=== PATIENT | male | born 1980 | race Caucasian/White ===

== ENCOUNTER 2024-05-01 13:20 | Day surgery (SDC) | payer MEDICARE, MEDICAID ==
[~2024-05-01] VITALS: Ht 172.7 cm; Wt 81.2 kg
[~2024-05-01 13:20] MED LIST: LR 1,000 ML IV SCH
[2024-05-01 14:24] VITALS: BP 123/77; PULSE 71; TEMP 98
[2024-05-01] MEDS ORDERED: Ondansetron 4 MG/2 ML VIAL ONE (14:43)
[2024-05-01] MEDS ORDERED: Lidocaine PF 2% (20 MG/ML) 5 ML VIAL ONE (14:43)
[2024-05-01] MEDS ORDERED: dexAMETHasone 10 MG/ML VIAL ONE (14:43)
[2024-05-01] MEDS ORDERED: Midazolam 2 MG/2 ML VIAL ONE (14:43)
[2024-05-01] MEDS ORDERED: Hyoscyamine 0.125 MG Sublingual TAB SL PRN (15:00)
[2024-05-01] MEDS ORDERED: oxyCODONE/Acetaminophen 5-325 MG TAB PO PRN (15:00)
[2024-05-01] MEDS ORDERED: Ketorolac 15 MG/ML VIAL IV PRN (15:00)
[2024-05-01] MEDS ORDERED: Ketorolac 30 MG/ML VIAL ONE (15:10)
[2024-05-01] MEDS ORDERED: fentaNYL 50 MCG/ML 2 ML VIAL ONE (15:10)
[2024-05-01] MEDS ORDERED: Iohexol 350 - 100 ML VIAL URETER-B ONE (15:24)
[2024-05-01] MEDS ORDERED: Lidocaine 2% (20 MG/ML) 20 ML UROJET UR ONE (15:25)
[2024-05-01] MEDS ORDERED: Meperidine 50 MG/ML 1 ML VIAL IV PRN (15:45)
[2024-05-01] MEDS ORDERED: droPERidol 2.5 MG/ML 2 ML VIAL IV PRN (15:45)
[2024-05-01] MEDS ORDERED: Ondansetron 4 MG/2 ML VIAL IV PRN (15:45)
[2024-05-01] MEDS ORDERED: fentaNYL 50 MCG/ML 1 ML SYRINGE/VIAL [PACU/SDC ONLY] IV PRN (15:45)
[2024-05-01] MEDS ORDERED: HYDROmorphone 1 MG/1 ML SYRINGE [PACU/SDC ONLY] IV PRN (15:45)
[2024-05-01] MEDS ORDERED: hydrALAZINE 20 MG/ML 1 ML VIAL IV PRN (15:45)
[2024-05-01 16:15] VITALS: BP 117/83; PULSE 72; TEMP 97
[2024-05-01 16:30] VITALS: BP 118/78; PULSE 68
[2024-05-01 16:36] VITALS: TEMP 97.1
[2024-05-01 16:45] VITALS: BP 113/80; PULSE 64
--- NOTE | 2024-05-01 17:00 | NUR ---
1615 RETURNS TO ROOM 2 PER CART. AWAKE, ALERT. HOB ELEVATED 50 DEGREES. RESP UNLABORED. VITAL SIGNS OBTAINED. ABD SOFT. DENIES PAIN OR URINARY URGENCY. CALL LIGHT AT SIDE. IN ROOM 1630 TOLERATES PO WATER AND JUICE WITHOUT NAUSEA 1640 DISCHARGE INSTRUCTIONS REVIEWED. PATIENT VERBALIZES UNDERSTANDING. COPY PROVIDED IN DISCHARGE FOLDER 1646 SITS ON EDGE OF CART, DRESSES SELFR, THEN AMBULATES TO BATHROOM WITH STANDBY ASSIST. ADMITS TO VOIDING LIGHT RED URINE WITHOUT DIFFICULTY.
== END 2024-05-01 17:00 | disposition home or self-care (01) ==
LOC: SDCO 13:20
DX: D41.4 Neoplasm of uncertain behavior of bladder (principal); F17.210 Nicotine dependence, cigarettes, uncomplicated
CPT/HCPCS: C1769; J0690; J1100; J1885; J2250; J2405; J2704; J3010; J7120; Q9967